=== PATIENT | female | born 1995 | race Caucasian/White ===

== ENCOUNTER 2021-04-27 10:07 | Emergency (ER) | payer SELFPAY ==
[2021-04-27] MEDS ORDERED: Lidocaine 1% PF 5 ML VIAL ONE (11:02)
[2021-04-27] MEDS ORDERED: Fentanyl 100 MCG/2 ML VIAL ONE (11:30)
[2021-04-27] MEDS ORDERED: Ondansetron ODT 4 MG TAB ONE (11:30)
== END 2021-04-27 12:12 | disposition home or self-care (01) ==
LOC: ERS 10:07
DX: L02.31 Cutaneous abscess of buttock (principal)
CPT/HCPCS: 10080; 96372; J3010; Q0162